=== PATIENT | female | born 1945 | race Caucasian/White ===

== ENCOUNTER → 2021-07-29 09:08 | Outpatient (CLI) | payer OTHER | END | disposition home or self-care (01) | LOC: NUCLEAR 09:08 | PROVIDERS: ATTEND Specialist | DX: N18.9 Chronic kidney disease, unspecified (principal) | CPT/HCPCS: 78708; A9562; J1940 ==

== ENCOUNTER 2021-09-16 13:10 | Outpatient (CLI) | payer OTHER | END 2021-09-16 13:14 | disposition home or self-care (01) | LOC: NUCLEAR 13:10 | PROVIDERS: ATTEND Specialist | DX: N13.4 Hydroureter (principal) | CPT/HCPCS: 78709; A9539 ==

== ENCOUNTER 2021-12-26 12:28 | Outpatient (CLI) | payer OTHER | END 2021-12-26 12:29 | disposition home or self-care (01) | LOC: RAD 12:28 | DX: J20.9 Acute bronchitis, unspecified (principal) ==